=== PATIENT | female | born 1970 | race Caucasian/White ===

== ENCOUNTER → 2018-02-11 | Outpatient (CLI) | payer OTHER ==
--- NOTE | 2018-02-11 18:56 | Diagnostic Imaging Report ---
EXAMINATION: Right wrist at 06:46 p.m. INDICATION: Injury. FINDINGS: Three views were obtained. There are no prior studies available for comparison. There is a vague linear lucency extending transversely through the base of the radial styloid. This finding may merely be secondary to superimposition. The possibility that that there is a nondisplaced fracture in this area would be less likely but should still be considered. Clinical follow-up is recommended. There is no fracture, dislocation, or acute bony abnormality identified otherwise. The wrist joint is fairly well maintained. The soft tissues are unremarkable. IMPRESSION: 1. There is a question of a nondisplaced fracture involving the base of the radial styloid. Clinical follow-up is recommended. 2. There is no acute bony abnormality noted otherwise. 3. These results were called to Kath Dial APRN. Dictated by: Dictated on workstation # [id number]
== END ==
LOC: RAD 17:50
PROVIDERS: ATTEND Nurse Practitioner Family
DX: S69.91XA Unspecified injury of right wrist, hand and finger(s), initial encounter (principal)
CPT/HCPCS: 73110

== ENCOUNTER → 2022-06-15 | Outpatient (CLI) | payer OTHER ==
--- NOTE | 2022-06-18 19:53 | Diagnostic Imaging Report ---
3D bilateral screening mammogram. The current study was also evaluated with a Computed Aided Detection (CAD) system. COMPARISON: This study was compared to the prior exam of 11/05/2018. There are no current complaints. FINDINGS: The fibroglandular tissue in both breasts is heterogeneously dense. This does limit the sensitivity of this exam. When compared to the previous study there does not appear to have been any significant change. There is no primary or secondary sign of malignancy noted. IMPRESSION: 1. There is no evidence for malignancy. 2. The patient should have her annual bilateral screening mammogram on schedule in June 2023. ACR BI-RADS Category 1: Negative. Result letter will be mailed to the patient. Note: At least 10% of breast cancer is not imaged by mammography. Dictated by: Dictated on workstation # [id number]
== END ==
LOC: RAD 15:30
PROVIDERS: ATTEND Obstetrics & Gynecology
DX: Z12.31 Encounter for screening mammogram for malignant neoplasm of breast (principal); Z01.419 Encounter for gynecological examination (general) (routine) without abnormal findings
CPT/HCPCS: 77063; 77067